=== PATIENT | female | born 1995 | race Caucasian/White ===

== ENCOUNTER 2018-10-07 20:27 | Emergency (ER) | payer BC ==
[2018-10-07 20:51] VITALS: BP 135/82
[2018-10-07] MEDS ORDERED: DOXYcycline CAP(*) 100 MG PO ONE (21:14)
--- NOTE | 2018-10-07 21:15 | UC ---
Skin Complaint HPI - HPI Summary HPI Summary: 23-year-old female comes in with a chief complaint of a rash on the left upper arm. She noticed it yesterday and had a bull's-eye appearance with erythema. She was out at a campfire 2 nights ago. She did not see any ticks. No fevers chills feels well otherwise. - History of Current Complaint Chief Complaint: UCSkin Time Seen by Provider: 10/07/18 21:06 Stated Complaint: TICK BITE Hx Last Menstrual Period: "two weeks ago" Pain Intensity: 0 - Allergy/Home Medications Allergies/Adverse Reactions: Allergies Allergy/AdvReac Type Severity Reaction Status Date / Time amoxicillin Allergy Hives Verified 10/07/18 20:48 cefprozil [From Cefzil] Allergy Rash Verified 10/07/18 20:48 Penicillins Allergy Rash Verified 10/07/18 20:48 Sulfa (Sulfonamide Allergy Hives Verified 10/07/18 20:48 Antibiotics) Home Medications: Home Medications Ethinyl Estradiol/Drospirenone [Aiyana 28 Tablet] 1 each PO DAILY 10/07/18 [ History Confirmed 10/07/18] PMH/Surg Hx/FS Hx/Imm Hx Previously Healthy: Yes - Surgical History Surgical History: Yes Surgery Procedure, Year, and Place: [place] - Family History Known Family History: Positive: Non-Contributory - Social History Alcohol Use: Occasionally Substance Use Type: None Smoking Status (MU): Never Smoked Tobacco Review of Systems All Other Systems Reviewed And Are Negative: Yes Constitutional: Positive: Negative Skin: Positive: Other - SEE HPI Eyes: Positive: Negative ENT: Positive: Negative Respiratory: Positive: Negative Cardiovascular: Positive: Negative Gastrointestinal: Positive: Negative Motor: Positive: Negative Neurovascular: Positive: Negative Musculoskeletal: Positive: Negative Neurological: Positive: Negative Psychological: Positive: Negative Is Patient Immunocompromised?: No Physical Exam Triage Information Reviewed: Yes Appearance: Well-Appearing, No Pain Distress, Well-Nourished Vital Signs: Initial Vital Signs Temp 98.2 F 10/07/18 20:44 Pulse 80 10/07/18 20:44 Resp 10 10/07/18 20:44 BP 135/82 10/07/18 20:44 Pulse Ox 100 10/07/18 20:44 Vital Signs Reviewed: Yes Eye Exam: Normal Eyes: Positive: Conjunctiva Clear Neck: Positive: Supple Respiratory: Positive: No respiratory distress Musculoskeletal Exam: Normal Musculoskeletal: Positive: Strength Intact, ROM Intact Neurological Exam: Normal Neurological: Positive: Alert, Muscle Tone Normal Psychological Exam: Normal Psychological: Positive: Normal Response To Family, Age Appropriate Behavior Skin: Positive: Other - 3CM DIAMETER BULLS EYE RASH LEFT UPPER INNER ARM Course/Dx - Diagnoses Provider Diagnosis: Erythema migrans (Lyme disease) Discharge - Sign-Out/Discharge Documenting (check all that apply): Patient Departure All imaging exams completed and their final reports reviewed: No Studies - Discharge Plan Condition: Stable Disposition: HOME Prescriptions: DOXYcycline CAP(*) [DOXYcycline 100MG CAP(*)] 100 mg PO BID #27 cap Patient Education Materials: Lyme Disease (ED) Referrals: Estiven Sonw DO [Primary Care Provider] - Additional Instructions: FOLLOW UP WITH YOUR DOCTOR IF NOT COMPLETELY IMPROVED. GET RECHECKED SOONER IF YOUR CONDITION WORSENS OR ANY QUESTIONS OR CONCERNS. - Billing Disposition and Condition Condition: STABLE Disposition: Home
== END 2018-10-07 21:30 | disposition home or self-care (01) ==
LOC: UCCORT 20:27
DX: A26.0 Cutaneous erysipeloid (principal); A69.20 Lyme disease, unspecified
CPT/HCPCS: 99202; A9270-GY; G0463